=== PATIENT | male | born 2000 | race African-American/Black ===

== ENCOUNTER 2023-03-17 13:48 | Outpatient (AMB) | payer OTHER, SELFPAY ==
--- NOTE | 2023-03-17 13:53 | A.OFFVIS_ITS ---
Intake Vital Signs 03/17/23 13:56 Height 5 ft 11 in Weight 116 lb 13.52 oz BMI 16.3 Blood Pressure Location Lt brachial Position Sitting Intake Visit Reasons: Chron's disease Intake Note: Marnie presents in the office as a new patient for Chrohn's disease. CC: He states that he was once on Humira for his Crohn's - he was on it a year ago and then he had to move GI drs and get insurance. He states he has arthritis all over his body. He states that he feels like an old man in a young body. Certified Nurse Required: No Allergies No Known Allergies Allergy (Verified 03/17/23 13:57) HPI HPI Comments History of Present Illness Details 22y.o M with PMH of crohns disease of sm all and large intestine on Humira who is here to establish care. Pt was initially diagnosed in 2014 (Dr Castaneda) for sx of abd pain and diarrhea. Initially on steroids and pentasa for colon involevement and later transitioned to Humira in 2016 after he was noted to have involvement of long segment of ileum on small bowel imaging (Dr Robert). Also has hx of bowel resection in 2019 ?? done for stricture had an ostomy x 6 months and was then reconnected. Has not had any flare ups since then. Currently, not on any medications. 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 Last Humira dose was sometime in September 2021. Last endoscopy was in 2019. Main complaints today are pain in multiple joints including elbow. neck, low back pain and ankles. Used to be established with Dr Marsh > 5 years ago but has not seen a santa's helper since then. Pt also mentions heart problems and states has been seen by Cardiology who told him his heart has not been working at full capacity. Reports having a CT scan and echo through them. No gastrointestinal complaints to include abd pain, N,V, diarrhea. Has 1-2 formed BMs per day. No blood in stool. Fam hx of crohns in brother. PFSH Surgical History (Updated 03/17/23 @ 13:57 by GHASSAN Flores) Hx of colonoscopy History of colostomy reversal Social History (Updated 03/17/23 @ 13:58 by GHASSAN Flores) Alcohol intake: current Alcohol intake frequency: holidays/special occasions only Patient Tobacco Use Status: Never used Tobacco Substance Use Type: Marijuana Review of Systems Const All systems reviewed & are unremarkable except as noted in HPI and below Physical Exam Vital Signs: BMI result Body Mass Index 16.3 Gen appear: NAD HEENT: nonicteric, no cervical lymphadenopathy Chest: CTA CVS: Reported significant chest pain on laying down Abd: RLQ scar, soft, nontender, nondistended, bowel sounds + Ext: no peripheral edema Neuro: A/Ox3, noted to move all extremities spontaneously Psych: interacting appropriately Assessment & Plan Assessment & Plan (1) Crohn's disease: Code(s): K50.90 - Crohn's disease, unspecified, without complications (2) Crohn's related arthritis: Code(s): M07.60 - Enteropathic arthropathies, unspecified site; K50.90 - Crohn's disease, unspecified, without complications (3) Cardiomyopathy: Code(s): I42.9 - Cardiomyopathy, unspecified Plan High risk phenotype of Crohns disease given young age of onset, and hx of bowel surgery. Will need endoscopic evaluation however given report of cardiomyopathy and significant chest pain on just laying down, will need to be optimized from cardiac standpoint to reduce periprocedural risk. In the meantime, labs ordered. Will also get a CT enterography to evaluate for small bowel disease. Records release signed to get records from [facility]. Pt does not remember sewage treatment plant operator's name but will call office tmrw. For multiple arthropathies which are likely related to underlying crohns, will refer to Rheum. Close follow up in 4 weeks. Orders: Orders Vitamin D 25-OH Total Today K50.90 - Crohn's disease, unspecified, without complications Hepatitis B Surface Antigen Today K50.90 - Crohn's disease, unspecified, without complications HIV Ab/Ag Today K50.90 - Crohn's disease, unspecified, without complications Thiopurine Methyltransferase Today K50.90 - Crohn's disease, unspecified, without complications Complete Blood Count no Diff Today K50.90 - Crohn's disease, unspecified, without complications Comprehensive Met. Panel Today K50.90 - Crohn's disease, unspecified, without complications IRON PROFILE Today K50.90 - Crohn's disease, unspecified, without complications Ferritin Today K50.90 - Crohn's disease, unspecified, without complications Vitamin B12 and Folate Today K50. - Crohn's disease, unspecified, without complications Hepatitis A IgG Today K50 - Crohn's disease, unspecified, without complications Hepatitis B Core Antibody Today K5 - Crohn's disease, unspecified, without complications Hepatitis B Surface Antibody Today K5 - Crohn's disease, unspecified, without complications Hepatitis C Antibody Today K5 - Crohn's disease, unspecified, without complications T Spot TB Today K5 - Crohn's disease, unspecified, without complications Calprotectin, Fecal Today K5 - Crohn's disease, unspecified, without complications CT enterography Today K5 - Crohn's disease, unspecified, without complications Referrals Rheumatology Referral K5 - Crohn's disease, unspecified, without complications, M07.60 - Enteropathic arthropathies, unspecified site Coding Level of Care Code New Pt Level 4 (79790) Diagnoses Crohn's disease Crohn's related arthritis M07.60; Cardiomyopathy I42.9
[2023-03-17 13:56] VITALS: BMI 16.3
== END 2023-03-17 15:26 | disposition home or self-care (01) ==
PROVIDERS: PCP Nurse Practitioner Primary Care; Visit Provider Internal Medicine
DX: K50.90 Crohn's disease, unspecified, without complications (principal); M07.60 Enteropathic arthropathies, unspecified site; I42.9 Cardiomyopathy, unspecified
CPT/HCPCS: 99204

== ENCOUNTER → 2023-03-17 13:48 | Outpatient (BNVA) | payer MEDICAID, SELFPAY | PROVIDERS: PCP Nurse Practitioner Primary Care; Visit Provider Internal Medicine ==

== ENCOUNTER 2023-04-17 15:15 | Outpatient (REF) | payer OTHER, SELFPAY ==
--- NOTE | ~2023-04-17 | CT_ITS ---
EXAMINATION: CT ENTEROGRAPHY ABDOMEN AND PELVIS WITH CONTRAST CLINICAL INFORMATION: Crohn's disease COMPARISON: None available. TECHNIQUE: Study performed with oral VoLumen (1350 mL) and 480 mL of water to distend the abdomen. The patient was injected with 85 mL Omnipaque 350 intravenous contrast which was administered without adverse effect. Coronal and sagittal reformatted images were obtained at the technologist's workstation. This CT examination was performed using dose optimization techniques as appropriate, variously including the following: *Automated exposure control *Adjustment of mA and/or kV according to patient size (this includes techniques or standardized protocols for targeted exams where dose is matched to indication/reason for exam; i.e. extremities or head) *Use of iterative reconstruction technique DLP: 256 mGy-cm FINDINGS: GASTROINTESTINAL FINDINGS: Stomach: Well-distended and normal in appearance. Small intestine: Postsurgical changes to the distal small bowel/cecum with surgical staple line. The distal small bowel is slightly dilated and fluid-filled. This demonstrates mucosal enhancement. This extends to the enterocolic anastomosis. Appearance is concerning for active inflammatory bowel disease of the distal remaining small bowel. Large intestine: Postsurgical changes as above. Well-distended and otherwise normal in appearance. No perirectal changes demonstrated. The appendix is not seen and has probably been removed. Trace ascites in the pelvis. Mild fat stranding adjacent to the enterocolic anastomosis in the right paracolic gutter. Slightly enlarged small bowel mesentery lymph nodes. Largest lymph node measures 1.5 cm in short axis. Additional findings: No abnormal enhancement of the vasa recta.. No abdominal abscess or fistulous tract demonstrated. ABDOMINAL AND PELVIC CT FINDINGS: Liver, gallbladder, biliary tract: Flat area of well-defined low-attenuation adjacent to the dome of the liver, question representing small amount of loculated ascitic fluid. Small low-attenuation 7 mm lesion in the posterior segment of the right lobe axial image 87 series 2. There is a difficult to characterize due to small size but may represent a small cyst. No other focal liver lesion. Gallbladder is contracted. No biliary duct dilatation. Pancreas: Normal Spleen: Normal Adrenal glands and kidneys: Normal adrenal glands. Small bilateral nonobstructing renal stones. Ureters and bladder: Normal Lymphovascular structures: Normal Bones: Normal Lung bases: Normal CT/CT enterography IMPRESSION: Postsurgical changes to the distal small bowel/proximal colon with surgical staple line. Slightly distended distal small bowel with mild mucosal enhancement extending to the enterocolic anastomosis questionable for active inflammatory bowel disease. Enlarged small bowel mesentery lymph nodes in the right lower quadrant. Trace ascites. Small bilateral renal stones.
[2023-04-17] MEDS: iohexoL 350 MG/ML 100 ML INFUS..BTL IV (16:16)
[2023-04-17] MEDS: Sorbitol/Mannit/Xanth Imaging 500 ML LIQUID 1500 ML PO (16:16)
== END 2023-04-17 15:16 | disposition home or self-care (01) ==
LOC: HO.CT 15:15
PROVIDERS: Visit Provider Internal Medicine
DX: K50.90 Crohn's disease, unspecified, without complications (principal)
CPT/HCPCS: 74177; Q9967

== ENCOUNTER 2023-05-05 13:52 | Outpatient (AMB) | payer OTHER, SELFPAY ==
--- NOTE | 2023-05-05 14:11 | A.OFFVIS_ITS ---
Intake Vital Signs 05/05/23 14:14 Height 5 ft 11 in Weight 131 lb BMI 18.3 BP 89/54 L Blood Pressure Location Lt brachial Position Sitting Pulse 108 H Intake Visit Reasons: follow up complex crohns with cardiomyopathy Intake Note: Patient follow up for crohns with cardiomyopathy. Patient denies any GI issues. Wastewater Technician Required: No Accompanied by: Self / Same As Patient Allergies No Known Allergies Allergy (Verified 05/05/23 14:11) HPI HPI Comments History of Present Illness Details 22y.o M with PMH of crohns disease of sm all and large intestine on Humira who is here for follow up. 03/17/23: Pt was initially diagnosed in 2014 (Dr Castaneda) for sx of abd pain and diarrhea. Initially on steroids and pentasa for colon involevement and later transitioned to Humira in 2016 after he was noted to have involvement of long segment of ileum on small bowel imaging (Dr Robert). Also has hx of bowel resection in 2019 ?? done for stricture had an ostomy x 6 months and was then reconnected. Has not had any flare ups since then. Currently, not on any medications. 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 Last Humira dose was somet kyle in September 2021. Last endoscopy was in 2019. Main complaints today are pain in multiple joints including elbow. neck, low back pain and ankles. Used to be established with Dr Marsh > 5 years ago but has not seen a thermograph operator since then. Pt also mentions heart problems and states has been seen by Cardiology who told him his heart has not been working at full capacity. Reports having a CT scan and echo through them. No gastrointestinal complaints to include abd pain, N,V, diarrhea. Has 1-2 formed BMs per day. No blood in stool. Fam hx of crohns in brother. 04/17/23: CTE: Postsurgical changes to the distal small bowel/proximal colon with surgical staple line. Slightly distended distal small bowel with mild mucosal enhancement extending to the enterocolic anastomosis questionable for active inflammatory bowel disease. Enlarged small bowel mesentery lymph nodes in the right lower quadrant. Trace ascites. Small bilateral renal stones. 05/05/23: Records from [facility] cardiology reviewed and scanned. Was noted to have cardiomyopathy with EF 30-35% on echo September 2022. Sees Dr Cassia Garcia, last visit in Feb 2023. On metoprolol and entresto. Plan for cardiac MRI for further eval. Will hold off endoscopic eval until cleared from cardiac standpoint. Will also not be a candidate for re-initiation of anti-TNF due to existing cardiomyopathy. Plan was to start him on systemic pred based on above. Unfortunately, pt has not gotten any labs done and no-showed on 04/23/23. He was rescheduled for visit today. Did have CTE as above. Pt today reports somewhat increase in stool frequency since he was last seen. Tells me ??humira was approved as well. This was not prescribed through this office and pt is unable to recall where this was Rxed from, thinks possibly [facility]. He also mentions that he is planning to move out of [facility] in a few weeks to [facility], and planning to move all his care there. [facility] Surgical History Hx of colonoscopy History of colostomy reversal Social History Alcohol intake: current Alcohol intake frequency: holidays/special occasions only Patient Tobacco Use Status: Never used Tobacco Substance Use Type: Marijuana Review of Systems Const All systems reviewed & are unremarkable except as noted in HPI and below Physical Exam Vital Signs: Last Vital Signs Pulse 108 H 05/05/23 14:14 BP 89/54 L 05/05/23 14:14 BMI result Body Mass Index 18.3 Gen appear: NAD HEENT: nonicteric Abd: RLQ scar, soft, nontender Ext: no peripheral edema Neuro: A/Ox3, hard of hearing, noted to move all extremities spontaneously Psych: interacting appropriately Assessment & Plan Assessment & Plan (1) Crohn's disease: Code(s): K50.90 - Crohn's disease, unspecified, without complications (2) Crohn's related arthritis: Code(s): M07.60 - Enteropathic arthropathies, unspecified site; K50.90 - Crohn's disease, unspecified, without complications (3) Cardiomyopathy: Code(s): I42.9 - Cardiomyopathy, unspecified Plan High risk phenotype of Crohns disease given young age of onset, and hx of bowel surgery. However non-ischemic cardiomyopathy which is still being investigated limits endoscopic evaluation as well as reinitiation of anti-TNF at this time. Clarified with the pt that Humira was NOT prescribed through this office and that he should call his other provider laura to inform them of his weak heart as well as imminent move out of state. Unclear why he is under care of two GIs but we will obtain records from [facility] and [facility] to determine where he was seen so that we may communicate with his other GI provider. Discussed that at this point would recommend prednisone therapy with a taper so that it may be continued despite his out of state move- Rx will be sent after labs dropped off for biochemical markers. Follow up deferred as pt moving out of state but was encouraged to call our office if does not end up moving. Coding Level of Care Code Est Pt Level 5 (38349) Diagnoses Crohn's disease K50.90 Crohn's related arthritis M07.60; K50.90 Cardiomyopathy I42.9
[2023-05-05 14:14] VITALS: BP 89/54; PULSE 108; BMI 18.3
== END 2023-05-05 15:41 | disposition home or self-care (01) ==
PROVIDERS: Visit Provider Internal Medicine
DX: K50.90 Crohn's disease, unspecified, without complications (principal); M07.60 Enteropathic arthropathies, unspecified site; I42.9 Cardiomyopathy, unspecified
CPT/HCPCS: 99214

== ENCOUNTER 2023-05-05 13:52 | Outpatient (REF) | payer OTHER, SELFPAY ==
[2023-05-05 15:24] LABS: Hemoglobin 9.9 g/dl (14.0-18.0); Mean Corpuscular HGB Conc 30.9 g/dl (31.0-36.0); Mean Corpuscular Hemoglobin 25.1 pg (27.0-33.0); Mean Corpuscular Volume 81.2 fL (80.0-98.0); Mean Platelet Volume 8.6 fL (9.4-12.4); Platelet Count 623 X10*3/uL (160-400); Red Blood Count 3.94 X10*6/uL (4.60-5.80); Red Cell Distribution Width 16.3 % (11.0-16.0); White Blood Count 6.7 X10*3/uL (4.8-10.8)
[2023-05-05 15:49] LABS: Alanine Aminotransferase 7 U/L (0-40); Albumin Level 3.4 g/dL (3.5-5.0); Alkaline Phosphatase 70 U/L (39-117); Anion Gap 10 (12-20); Aspartate Amino Transferase 14 U/L (5-37); Bilirubin Total 0.5 mg/dL (0.0-1.0); Blood Urea Nitrogen 7 mg/dL (9-16); Calcium 8.9 mg/dL (8.4-10.2); Carbon Dioxide 30 mmol/L (22-29); Chloride 102 mmol/L (96-108); Estimated Glomerular Filt Rate > 60; Glucose Random 73 mg/dL (60-115); Iron 18 mcg/dL (45-160); Percent Iron Saturation 9 % (15-50); Potassium 3.4 mmol/L (3.3-5.1); Sodium 139 mmol/L (135-145); Total Iron Binding Capacity 205 mcg/dL (228-428); Total Protein 7.6 g/dL (6.5-8.0); Unsaturated Iron Binding 187 ug/dL
[2023-05-05 16:05] LABS: Ferritin 206 ng/mL (20-250); Vitamin D 25-OH Total 6.3 ng/mL (>30)
[2023-05-05 16:18] LABS: Folate 7.4 ng/mL (> or = 4.0); Vitamin B12 643 pg/mL (200-900)
[2023-05-06 07:23] LABS: HBS Num1 25.71 mIU/mL (0-7.99); HBc Num1 4.16 S/CO (0.00-0.79); HBsAGNum1 0.32 S/CO (0.00-0.99); HIV AB/AG Nonreactive (Nonreactive); HIV Num 1 0.06 S/CO (0.00-0.99); Hepatitis B Surface Antigen Negative (Negative); ~HepC Num1 0.04 S/CO (0.00-0.79); ~Hepatitis B Surface Antibody REACTIVE (Nonreactive); ~Hepatitis C Antibody Nonreactive (Nonreactive)
[2023-05-06 07:28] LABS: Hepatitis A Antibody IgG REACTIVE (Nonreactive)
[2023-05-06 08:29] LABS: HBc Num2 4.02 S/CO; HBc Num3 4.04 S/CO; Hepatitis B Core Antibody Reactive (Nonreactive)
[2023-05-07 17:43] LABS: TS Negative Control Passed; TS Panel A 1; TS Panel B 0; TS Positive Control Passed; TSpotTB Negative (Negative)
[2023-05-13 18:28] LABS: TPMT Activity 18
== END 2023-05-05 13:53 | disposition home or self-care (01) ==
LOC: HO.LAB 13:52
PROVIDERS: Visit Provider Internal Medicine
DX: K50.90 Crohn's disease, unspecified, without complications (principal); M07.60 Enteropathic arthropathies, unspecified site; I42.9 Cardiomyopathy, unspecified
CPT/HCPCS: 36415; 80053; 82306; 82607; 82728; 82746; 83540; 84433; 85027; 86481; 86704; 86706; 86708; 86803; 87340; 87389; 99212

== ENCOUNTER 2023-05-27 12:17 | Outpatient (REF) | payer OTHER, SELFPAY ==
[2023-06-01 00:18] LABS: Calprotectin, Fecal 7210 mcg/g
== END 2023-05-27 12:18 | disposition home or self-care (01) ==
LOC: HO.LNP 12:17
PROVIDERS: Visit Provider Internal Medicine
DX: K50.90 Crohn's disease, unspecified, without complications (principal)
CPT/HCPCS: 83993

== ENCOUNTER 2024-04-09 14:11 | Outpatient (AMB) | payer OTHER, SELFPAY ==
--- NOTE | 2024-04-09 14:11 | A.OFFVIS_ITS ---
Vital Signs 04/09/24 14:12 Height 5 ft 11 in Weight 130 lb 1.164 oz BMI 18.1 BP 106/59 L Blood Pressure Location Lt brachial Position Sitting Pulse 112 H Intake Visit Reasons: crohns Intake Note: Marnie presents in the office as a follow up for crohns. CC: HE states that he has arthritis all over his body but denies any GI concerns. Assurance Manager Insurance Required: No Allergies No Known Allergies Allergy (Verified 04/09/24 14:12) HPI Comments Details: 22y.o M with PMH of crohns disease of small and large intestine on Humira who is here for follow up. 03/17/23: Pt was initially diagnosed in 2014 (Dr Castaneda) for sx of abd pain and diarrhea. Initially on steroids and pentasa for colon involevement and later transitioned to Humira in 2016 after he was noted to have involvement of long segment of ileum on small bowel imaging (Dr Robert). Also has hx of bowel resection in 2019 ?? done for stricture had an ostomy x 6 months and was then reconnected. Has not had any flare ups since then. Currently, not on any medications. 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 Last Humira dose was sometime in September 2021. Last endoscopy was in 2019. Main complaints today are pain in multiple joints including elbow. neck, low back pain and ankles. Used to be established with Dr Marsh > 5 years ago but has not seen a bolting machine operator since then. Pt also mentions heart problems and states has been seen by Cardiology who told him his heart has not been working at full capacity. Reports having a CT scan and echo through them. No gastrointestinal complaints to include abd pain, N,V, diarrhea. Has 1-2 formed BMs per day. No blood in stool. Fam hx of crohns in brother. 04/17/23: CTE: Postsurgical changes to the distal small bowel/proximal colon with surgical staple line. Slightly distended distal small bowel with mild mucosal enhancement extending to the enterocolic anastomosis questionable for active inflammatory bowel disease. Enlarged small bowel mesentery lymph nodes in the right lower quadrant. Trace ascites. Small bilateral renal stones. 05/05/23: Records from [facility] cardiology reviewed and scanned. Was noted to have cardiomyopathy with EF 30-35% on echo September 2022. Sees Dr Cassia Garcia, last visit in Feb 2023. On metoprolol and entresto. Plan for cardiac MRI for further eval. Will hold off endoscopic eval until cleared from cardiac standpoint. Will also not be a candidate for re-initiation of anti-TNF due to existing cardiomyopathy. Plan was to start him on systemic pred based on above. Unfortunately, pt has not gotten any labs done and no-showed on 04/23/23. He was rescheduled for visit today. Did have CTE as above. Pt today reports somewhat increase in stool frequency since he was last seen. Tells me ??humira was approved as well. This was not prescribed through this office and pt is unable to recall where this was Rxed from, thinks possibly [facility]. He also mentions that he is planning to move out of [facility] in a few weeks to [facility], and planning to move all his care there. 04/09/24: Pt initially went out of [facility] to [place] for almost 7 months and returned in November of this year. Office attempted to reach out to him for follow up x multiple times without success. Currently main concerns are joint pains that often limits his activity. Surprisingly does not report any abd sx. No abd pain, N,V. Has formed stool 2 times a day. Without blood. Minimal urgency. No FI. No night time sx. Weight curve stable. 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 Of note - also has cardiomyopathy likely non-ischemic with last known EF of 30% in September 2022. From previous notes plan was for a cardiac MRI but has not followed up with cardiology yet. Provider is Dr. Cassia Garcia at cardiology. Tells me that the office had called him a few times while he was at work and therefore was not able to set up follow-up. Was admitted in [facility] in Jan CT Abd/pel 01/29/24: Findings are consistent with a complex collection in the right medial gluteal fold. Mural enhancement is consistent with infection or inflammation. No gas is demonstrated within this. Abnormal appearance to the terminal ileum just before its anastomosis with the right colon. There are associated enlarged lymph nodes in the right lower quadrant adjacent to this Findings are consistent with inflammation possibly subacute to chronic. No evidence of obstruction. Nonobstructing bilateral renal calculi. Liquid stool possibly representing diarrheal disease. 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 (Dr Duarte 01/30/24). Reports decrease in discharge. Initially was changing the gauze at least 5 to 6 times a day, now has to change it 2 to 3 times a day. Was then again seen at [facility] ER on 02/18 for L knee effusion determined to be inflammatory. [facility] Surgical History Hx of colonoscopy History of colostomy reversal Social History Alcohol intake: current Alcohol intake frequency: holidays/special occasions only Patient Tobacco Use Status: Never used Tobacco Substance Use Type: Marijuana Review of Systems Const All systems reviewed & are unremarkable except as noted in HPI and below Physical Exam Vital Signs: Last Vital Signs Pulse 112 H 04/09/24 14:12 BP 106/59 L 04/09/24 14:12 BMI result Body Mass Index 18.1 Gen appear: NAD HEENT: nonicteric Abd: RLQ scar, soft, nontender Ext: no peripheral edema Neuro: A/Ox3, hard of hearing, noted to move all extremities spontaneously Psych: interacting appropriately Assessment & Plan Assessment & Plan (1) Crohn's disease: Code(s): K50.90 - Crohn's disease, unspecified, without complications Category: Medical (2) Crohn's related arthritis: Code(s): M07.60 - Enteropathic arthropathies, unspecified site; K50.90 - Crohn's disease, unspecified, without complications Category: Medical (3) Cardiomyopathy: Code(s): I42.9 - Cardiomyopathy, unspecified Category: Medical (4) History of colon resection: Code(s): Z90.49 - Acquired absence of other specified parts of digestive tract Category: Surgical (5) Marijuana use: Code(s): F12.90 - Cannabis use, unspecified, uncomplicated Category: Social Hx (6) Knee effusion, left: Code(s): M25.462 - Effusion, left knee Category: Medical Plan Patient with history of Crohn's disease (diagnosed 12/2014 @ age 14 with?pancolitis?& ileitis s/p ileocecectomy 2019 for terminal ileal stricture; previously on Humira with erratic adherence), dilated cardiomyopathy (LV EF 30- 35% in 09/2022; no further workup as he left AMA),?marijuana. High risk phenotype of Crohns disease given young age of onset, and hx of bowel surgery. However non-ischemic cardiomyopathy which is still being investigated limits endoscopic evaluation as well as reinitiation of anti-TNF at this time. Currently, based on his description, GI symptoms appear to be quiescent. His main complaint is joint pains and effusion in the knee joint. Will send a referral again to rheumatology. Patient again questions initiation of Humira, and was again counseled in detail that due to his cardiomyopathy, this is prohibitive. Will need reassessment of his heart disease. He was again urge to call chlorination operator office to make a follow-up. If there has been no improvement in his EF, will likely plan for Stelara versus Skyrizi given perianal involvement. Plan: -updated labs -low threshold to start Entocort if has elevated fecal calpro -hold of EGD and colo until cleared by Cardiology -will likely need Ustekinumab versus Risankizumab for long-term maintenance -rheumatology referral requested Follow-up in 4 weeks Orders: Orders Calprotectin, Fecal Today K50.90 - Crohn's disease, unspecified, without complications C Reactive Protein Today K50.90 - Crohn's disease, unspecified, without complications Complete Blood Count no Diff Today K50.90 - Crohn's disease, unspecified, without complications Ferritin Today K50.90 - Crohn's disease, unspecified, without complications Comprehensive Met. Panel Today K50.90 - Crohn's disease, unspecified, without complications Vitamin D 25-OH Total Today K50.90 - Crohn's disease, unspecified, without complications Referrals Rheumatology Referral K50.90 - Crohn's disease, unspecified, without complications, M07.60 - Enteropathic arthropathies, unspecified site Coding Level of Care Code Est Pt Level 5 (94842) Complex EM visit Add On G2211 Diagnoses Crohn's disease K50.90 Crohn's related arthritis M07.60; K50.90 Cardiomyopathy I42.9 History of colon resection Z90.49 Marijuana use F12.90 Knee effusion, left M25.462
[2024-04-09 14:12] VITALS: BP 106/59; PULSE 112; BMI 18.1
== END 2024-04-09 14:36 | disposition home or self-care (01) ==
PROVIDERS: Visit Provider Internal Medicine
DX: K50.90 Crohn's disease, unspecified, without complications (principal); M07.60 Enteropathic arthropathies, unspecified site; Z90.49 Acquired absence of other specified parts of digestive tract; I42.9 Cardiomyopathy, unspecified; F12.90 Cannabis use, unspecified, uncomplicated; M25.462 Effusion, left knee
CPT/HCPCS: 99214